=== PATIENT | female | born 1980 | race Caucasian/White ===

== ENCOUNTER 2017-01-31 19:04 | Emergency (ER) | payer MEDICAID ==
--- NOTE | 2017-01-31 19:32 | EDPHY ---
H & P Time Seen by Provider: 01/31/17 19:20 HPI/ROS: Chief complaint. Migraine HPI. 36-year-old female with history of headaches had which she describes as a migraine last night and then today she had visual symptoms which she describes as flashing lights in her eyes and she developed facial numbness to the left face mouth left side of her nose and then to the fingers of her left hand. They were numb. This lasted 10-15 minutes and then developed headache. No nausea or vomiting. She thinks possibly she also had weakness to the left hand. She notes increased stress. No recent upper respiratory symptoms or fever. She still has some numbness but it seems to be resolving. ROS Constitutional. no fever/chills, no weakness Eyes. Visual scotoma at onset ENT. no sore throat, no nasal drainage Cardiovascular. no chest pain Respiratory. no shortness of breath, no cough Abdominal. no abdominal pain, no nausea/vomiting, no diarrhea . no problems urinating MS. no calf pain/swelling, no neck/back pain, no joint pain Skin. no rash Lymph. no swollen glands Neuro. Headache and left facial numbness Past Medical/Surgical History: Kidney infection, migraines Social History: Single, nonsmoker, no alcohol Smoking Status: Never smoked Physical Exam: General Appearance: Alert well-developed female mild distress vital signs are stable Eyes: Pupils equal and round no pallor or injection. ENT, Mouth: Mucous membranes are moist. Respiratory: There are no retractions, lungs are clear to auscultation. Cardiovascular: Regular rate and rhythm. Gastrointestinal: Abdomen is soft and nontender, no masses, bowel sounds normal. Neurological: Awake and alert, sensory and motor exams grossly normal. Speech is normal. Cranial nerves are normal. There is difference in sensation between right and left side of her face. There is no pronator drift. Hrrhes-mw-vovh is slightly ataxic with left index finger. Rjem-tj-jgma is normal Skin: Warm and dry, no rashes. Musculoskeletal: Neck is supple nontender. Extremities symmetrical, full range of motion. Psychiatric: Patient is oriented X 3, there is no agitation. Constitutional: Initial Vital Signs Temperature (C) 36.9 C 01/31/17 19:05 Heart Rate 69 01/31/17 19:05 Respiratory Rate 18 01/31/17 19:05 Blood Pressure 134/91 H 01/31/17 19:05 O2 Sat (%) 98 01/31/17 19:05 O2 Delivery Mode Room Air Allergies/Adverse Reactions: No Known Allergies Allergy (Verified 01/31/17 19:08) Home Medications: Medication Instructions Recorded NK [No Known Home Meds] 06/02/16 Medical Decision Making - Diagnostics Imaging Results: Imaging Impressions Brain MRI 01/31/17 20:07 Impression: 1. Left maxillary sinusitis. 2. Otherwise normal MRI brain without contrast. Findings and recommendations discussed with Emergency Department physician, SYD JACOB at 20:48 hour, 01/31/2017. Final report concurs with initial preliminary interpretation. MRI reviewed with Dr. Govea is nonacute Procedures: IV normal saline. Patient does not require any medication ED Course/Re-evaluation: I consulted and discussed case with the neurologist prison guard supervisor who recommends MRI Re-evaluation 9:00 p.m.. Patient is stable. Her symptoms have resolved. She and I discussed imaging and lab results. We discussed treatment plan including criteria for return importance of follow-up and further evaluation. She expresses understanding and agreement Differential Diagnosis: I considered migraine, CVA, TIA, intracranial bleeding - Data Points Laboratory Results: Laboratory Results 01/31/17 20:55 01/31/17 01/31/17 01/31/17 20:55 20:55 20:55 WBC 11.03 10^3/uL H 10^3/uL (3.80-9.50) RBC 4.97 10^6/uL 10^6/uL (4.18-5.33) Hgb 15.5 g/dL g/dL (12.6-16.3) Hct 44.9 % % (38.0-47.0) MCV 90.3 fL fL (81.5-99.8) MCH 31.2 pg pg (27.9-34.1) MCHC 34.5 g/dL g/dL (32.4-36.7) RDW 12.0 % % (11.5-15.2) Plt Count 285 10^3/uL 10^3/uL (150-400) MPV 10.3 fL fL (8.7-11.7) Neut % (Auto) 63.0 % % (39.3-74.2) Lymph % (Auto) 29.5 % % (15.0-45.0) [place] % (Auto) 6.2 % % (4.5-13.0) Eos % (Auto) 0.0 % L % (0.6-7.6) Baso % (Auto) 1.0 % % (0.3-1.7) Nucleat RBC Rel Count 0.0 % % (0.0-0.2) Absolute Neuts (auto) 6.96 10^3/uL H 10^3/uL (1.70-6.50) Absolute Lymphs (auto) 3.25 10^3/uL H 10^3/uL (1.00-3.00) Absolute Monos (auto) 0.68 10^3/uL 10^3/uL (0.30-0.80) Absolute Eos (auto) 0.00 10^3/uL L 10^3/uL (0.03-0.40) Absolute Basos (auto) 0.11 10^3/uL H 10^3/uL (0.02-0.10) Absolute Nucleated RBC 0.00 10^3/uL 10^3/uL (0-0.01) Immature Gran % 0.3 % % (0.0-1.1) Immature Gran # 0.03 10^3/uL 10^3/uL (0.00-0.10) Sodium Pending Potassium Pending Chloride Pending Carbon Dioxide Pending Anion Gap Pending BUN Pending Creatinine Pending Estimated GFR Pending Glucose Pending Calcium Pending Beta HCG, Qual Pending Medications Given: Discontinued Medications Sodium Chloride (Ns) 1,000 mls @ 0 mls/hr IV ONCE ONE PRN Reason: Wide Open Stop: 01/31/17 20:07 Last Admin: 01/31/17 20:56 Dose: 1,000 mls Departure - Departure Disposition: Home, Routine, Self-Care Clinical Impression: Migraine aura, persistent Qualifiers: Status migrainosus presence: without status migrainosus Intractability: not intractable Qualified Code(s): G43.509 - Persistent migraine aura without cerebral infarction, not intractable, without status migrainosus Condition: Good Instructions: Migraine Headache (ED) Additional Instructions: May use Tylenol or Advil as needed for headache. Return for worsening symptoms. I will give you the name of Neurology for follow-up and further evaluation and treatment Referrals: ,UNKNOWN [Other] - As per Instructions Steven Flores DO [Doctor of Osteopathy] - 5-7 days, call for appt.
[2017-01-31] MEDS ORDERED: NS 1,000 ML IV ONE (20:06)
[2017-01-31 21:08] LABS: % IMMATURE GRANULYOCYTES 0.3 % (0.0-1.1); ABSOLUTE IMMATURE GRANULOCYTES 0.03 10^3/uL (0.00-0.10); ADD DIFF? NO; ADD MORPH? NO; ADD SCAN? NO; ATYPICAL LYMPHOCYTE FLAG 10 (0-99); FRAGMENT RBC FLAG 0 (0-99); HEMATOCRIT 44.9 % (38.0-47.0); HEMOGLOBIN 15.5 g/dL (12.6-16.3); LEFT SHIFT FLG 0 (0-99); LIPEMIA HEMOLYSIS FLAG 90 (0-99); MEAN CELL HEMOGLOBIN 31.2 pg (27.9-34.1); MEAN CELL HEMOGLOBIN CONCENTR. 34.5 g/dL (32.4-36.7); MEAN CELL VOLUME 90.3 fL (81.5-99.8); MEAN PLATELET VOLUME 10.3 fL (8.7-11.7); PLATELET CLUMPS FLAG 10 (0-99); PLATELET COUNT 285 10^3/uL (150-400); RED BLOOD CELL COUNT 4.97 10^6/uL (4.18-5.33)
[2017-01-31 21:15] LABS: ANION GAP 10 mEq/L (8-16); CALCIUM 9.8 mg/dL (8.5-10.4); CARBON DIOXIDE 23 mEq/l (22-31); CHLORIDE 106 mEq/L (97-110); CREATININE 0.7 mg/dL (0.6-1.0); GLOMERULAR FILTRATION RATE > 60; GLUCOSE 97 mg/dL (70-100); POTASSIUM 4.3 mEq/L (3.5-5.2); SODIUM 139 mEq/L (134-144)
[2017-01-31 21:36] VITALS: BP 109/68; PULSE 59; RESP 16; TEMP 98.8; O2SAT 96
== END 2017-01-31 21:36 | disposition home or self-care (01) ==
DX: G43.509 Persistent migraine aura without cerebral infarction, not intractable, without status migrainosus (principal)

== ENCOUNTER 2018-02-06 08:25 | Emergency (ER) | payer MEDICAID ==
--- NOTE | 2018-02-06 08:59 | EDPHY ---
H & P Stated Complaint: Intermittent vertigo on waking this week;resolves; has URI sx/ runny nose Time Seen by Provider: 02/06/18 08:58 HPI/ROS: HPI: This is a 37-year-old female who presents with Chief Complaint: Intermittent vertigo on waking this week;resolves; has URI sx/ runny nose Location: Head Quality: Spinning sensation Duration: 5 days Signs and Symptoms: no fever, no nausea, no vomiting, + photophobia, no noise sensitivity, no neck stiffness, no ear pain, no tinnitus, + nasal congestion, no sinus pressure, no weakness, no radiation, no aura, + itchy watery eye, + sneezing Timing: Worse in the mornings Severity: Moderate Context: Patient presents with complaints of intermittent vertigo with a sensation of the room spinning when she turns her head to the right or to the left when she wakes up in the morning since Thursday. She reports that she travel to [facility] on Thursday. Thursday she woke up in her bed in turned to get out of the bed when she felt like the room was spinning. She denies feeling lightheaded/fever/ear pain/neck stiffness. She does report that she has some itchy watery eyes, sneezing, nasal congestion. She has a history of migraine headaches as well accompanied by photophobia especially today. She was seen at the [facility] emergency room 2 days ago and diagnosed with vertigo. She was given treatment plan for Ajay maneuvers which she reports has mild relief. Currently on menses. She reports that she was able to drive herself to the emergency room today. Modifying Factors: See above Comment: ROS: see HPI Constitutional: No fever, no chills, no weight loss Eyes: No blurred vision Respiratory: No shortness of breath, no cough Cardiovascular: No chest pain, no palpitations Gastrointestinal: No nausea, no vomiting, no diarrhea, no hematemesis, no blood in stool Genitourinary: No dysuria, no blood in urine Extremities: No myalgias, no edema Neurologic: No weakness, no numbness Skin: No rashes, no petechiae Hematologic: No bruising, no bleeding MEDICAL/SURGICAL/SOCIAL HISTORY: Medical history: Migraine headache. Does not take any regular medications. Surgical history: Denies Social history: Family history noncontributory. CONSTITUTIONAL: Extremely well-appearing nontoxic middle-aged white female, awake and alert, no obvious distress HEENT: Atraumatic and normocephalic, PERRL, EOMI. Nares patent; no rhinorrhea; no nasal mucosal edema. Tympanic membranes clear. Oropharynx clear, no exudate and moist pink mucosa. Airway patent. No lymphadenopathy. No meningismus. Cardiovascular: Normal S1/S2, regular rate, regular rhythm, without murmur rub or gallop. PULMONARY/CHEST: Symmetrical and nontender. Clear to auscultation bilaterally. Good air movement. No accessory muscle usage. ABDOMEN: Soft, nondistended, nontender, no rebound, no guarding, no peritoneal signs, no masses or organomegaly. No CVAT. EXTREMITIES: 2/2 pulses, strength 5/5, no deformities, no clubbing, no cyanosis or edema. NEUROLOGICAL: no focal neuro deficits. GCS 15. Cranial nerves 2-12 grossly intact. SKIN: Warm and dry, no erythema. no rash. Good capillary refill. Source: Patient Exam Limitations: No limitations - Personal History LMP (Females 10-55): Now Current Tetanus Diphtheria and Acellular Pertussis (TDAP): Yes - Medical/Surgical History Hx Asthma: No Hx Chronic Respiratory Disease: No Hx Diabetes: No Hx Cardiac Disease: No Hx Renal Disease: No Hx Cirrhosis: No Hx Alcoholism: No Hx HIV/AIDS: No Hx Splenectomy or Spleen Trauma: No Other PMH: MIGRAINES - Social History Smoking Status: Former smoker Constitutional: Initial Vital Signs Temperature (C) 36.7 C 02/06/18 08:26 Heart Rate 68 02/06/18 08:26 Respiratory Rate 18 02/06/18 08:26 Blood Pressure 99/68 L 02/06/18 08:26 O2 Sat (%) 98 02/06/18 08:26 O2 Delivery Mode Room Air Allergies/Adverse Reactions: No Known Allergies Allergy (Verified 02/06/18 08:26) Home Medications: Medication Instructions Recorded Fluticasone Furoate [Flonase 1 spray NS DAILY #1 spray.susp 02/06/18 Sensimist] Levocetirizine Dihydrochloride 5 mg PO DAILY #20 tablet 02/06/18 [Xyzal] Meclizine HCl [Meclizine HCl 25 mg 25 mg PO Q6 PRN #12 tab 02/06/18 (RX,OTC)] Medical Decision Making ED Course/Re-evaluation: I believe that patient has a combination of migraine is headache with vertigo secondary to allergic rhinosinusitis; barometric pressure changes Patient will be given 1 L normal saline, IV Decadron, IV Reglan, IV Benadryl I do not believe that antibiotics are indicated as no signs of bacterial sinusitis No neurological deficits to warrant imaging of the brain. Reassessed patient who reports improvement in her symptoms. Advised dixu-fnu-orrhstz antihistamines nasal spray, decongestant. Prescription for meclizine given. This patient was seen under the supervision of my secondary supervising physician. I evaluated care for this patient independently. Differential Diagnosis: Headache including but not limited to subarachnoid hemorrhage, migraine headache , tension headache and infectious causes such as meningitis, pharyngitis and sinusitis. - Data Points Medications Given: Discontinued Medications Dexamethasone (Decadron Injection) 10 mg IVP EDNOW ONE Stop: 02/06/18 09:10 Last Admin: 02/06/18 09:29 Dose: 10 mg Diphenhydramine HCl (Benadryl Injection) 25 mg IVP EDNOW ONE Stop: 02/06/18 09:10 Last Admin: 02/06/18 09:29 Dose: 25 mg Sodium Chloride (Ns) 1,000 mls @ 0 mls/hr IV ONCE ONE; Wide Open PRN Reason: Protocol Stop: 02/06/18 09:10 Last Admin: 02/06/18 09:24 Dose: 1,000 mls Ketorolac Tromethamine (Toradol) 30 mg IVP EDNOW ONE Stop: 02/06/18 09:10 Last Admin: 02/06/18 09:29 Dose: 30 mg Metoclopramide HCl (Reglan Injection) 10 mg IVP EDNOW ONE Stop: 02/06/18 09:10 Last Admin: 02/06/18 09:29 Dose: 10 mg Departure - Departure Disposition: Home, Routine, Self-Care Clinical Impression: History of migraine headaches Allergic rhinosinusitis Qualifiers: Allergic rhinitis trigger: unspecified Allergic rhinitis seasonality: seasonal Qualified Code(s): J30.2 - Other seasonal allergic rhinitis Condition: Good Instructions: Migraine Headache (ED), Vertigo (ED), Allergies (ED) Additional Instructions: Take iowo-yoz-nhqhifz antihistamines like (Claritin, Zyrtec, Rosa Maria, Xyzal) daily for allergic rhinosinusitis. Use yjng-tmv-twguoyk Flonase 1 spray each nostril daily. Take Sudafed aeof-nlg-bohvcah every 6 hr as needed for nasal congestion. Take Meclizine every 6 hr as needed for vertigo. Consume a minimum of 8-10 glasses of water or electrolyte fluid replacement drinks that include Gatorade, Powerade, Pedialyte. Return to the ER immediately if you have progressive headaches, neurologic deficits, gait abnormality, visual disturbance, slurred speech, or any other symptom that concerns you. Referrals: Florecita Cardenas, DO [Primary Care Provider] - 3-4 days, if not improved Prescriptions: Fluticasone Furoate [Flonase Sensimist] 1 spray NS DAILY #1 spray.susp Levocetirizine Dihydrochloride [Xyzal] 5 mg PO DAILY #20 tablet Meclizine HCl [Meclizine HCl 25 mg (RX,OTC)] 25 mg PO Q6 PRN #12 tab PRN Reason: Dizziness
[2018-02-06] MEDS ORDERED: NS 1,000 ML IV ONE (09:09)
[2018-02-06] MEDS ORDERED: METOCLOPRAMIDE 10 MG/2 ML VIAL IVP ONE (09:09)
[2018-02-06] MEDS ORDERED: DEXAMETHASONE 10 MG/ML VIAL IVP ONE (09:09)
[2018-02-06] MEDS ORDERED: KETOROLAC 30 MG/1 ML SDV IVP ONE (09:09)
[2018-02-06 10:34] VITALS: BP 108/67
== END 2018-02-06 10:32 | disposition home or self-care (01) ==
DX: J30.2 Other seasonal allergic rhinitis (principal); E86.9 Volume depletion, unspecified; Z86.69 Personal history of other diseases of the nervous system and sense organs; Z87.891 Personal history of nicotine dependence
CPT/HCPCS: 96374; J1100; J1200; J1885; J2765

== ENCOUNTER 2018-03-07 12:14 | Emergency (ER) | payer MEDICAID ==
--- NOTE | 2018-03-07 12:31 | CPEKG ---
Heart Rate: 65 RR Interval: 923 P-R Interval: 140 QRSD Interval: 80 QT Interval: 388 QTC Interval: 404 P Jefferson: 56 QRS Jefferson: 76 T Wave Jefferson: 73 EKG Severity - NORMAL ECG - EKG Impression: SINUS RHYTHM Electronically Signed By: Valencia Cardoso 07-Mar-2018 14:47:06
[2018-03-07 12:56] LABS: PLATELET COUNT 258 10^3/uL (150-400)
--- NOTE | 2018-03-07 13:54 | EDPHY ---
H & P Stated Complaint: presyncopal episode (palp, ldizzy) 10:45am today at work, better now Time Seen by Provider: 03/07/18 12:34 HPI/ROS: CHIEF COMPLAINT: Palpitations HISTORY OF PRESENT ILLNESS: 37-year-old female while presents with palpitations. She was at work this morning when she felt a fluttering in her chest. The fluttering lasted a few seconds. She felt the need to take a deep breath and then began to feel dizzy. The dizziness was transient and she did not fall or faint. She has had multiple prior fluttering sensations in her chest, but never associated with dizziness. No chest pain. REVIEW OF SYSTEMS: complete 10 point ROS negative except at noted in the HPI - Personal History LMP (Females 10-55): 1-7 Days Ago Current Tetanus/Diphtheria Vaccine: No Current Tetanus Diphtheria and Acellular Pertussis (TDAP): No - Medical/Surgical History Hx Asthma: No Hx Chronic Respiratory Disease: No Hx Diabetes: No Hx Cardiac Disease: No Hx Renal Disease: No Hx Cirrhosis: No Hx Alcoholism: No Hx HIV/AIDS: No Hx Splenectomy or Spleen Trauma: No Other PMH: MIGRAINES. depression - Social History Smoking Status: Former smoker Alcohol Use: Sober Drug Use: None - Physical Exam Exam: General Appearance: Alert, pleasant Eyes: Pupils equal and round, no conjunctival pallor or injection ENT, Mouth: Mucous membranes moist Neck: Normal inspection Respiratory: Lungs are clear to auscultation Cardiovascular: Regular rate and rhythm, no murmur Gastrointestinal: Abdomen is soft and nontender Neurological: A&O, nonfocal, normal gait Skin: Warm and dry, no rash Extremities: Nontender, no pedal edema Psychiatric: Mood and affect normal Constitutional: Initial Vital Signs Temperature (C) 37.0 C 03/07/18 12:18 Heart Rate 67 03/07/18 12:18 Respiratory Rate 16 03/07/18 12:18 Blood Pressure 105/59 L 03/07/18 12:18 O2 Sat (%) 97 03/07/18 12:18 O2 Delivery Mode Room Air Allergies/Adverse Reactions: No Known Allergies Allergy (Verified 02/06/18 08:26) Home Medications: Medication Instructions Recorded NK [No Known Home Meds] 03/07/18 Medical Decision Making - Diagnostics EKG Interpretation: EKG interpreted by me reveals normal sinus rhythm, rate 65, no ST or T segment changes. Interpretation: Normal EKG Imaging Results: Imaging Impressions Chest X-Ray 03/07/18 12:33 Impression: No acute pulmonary disease. Imaging: I viewed and interpreted images myself ED Course/Re-evaluation: This patient presents with symptomatic palpitations. Stat EKG reveals no evidence of ischemia or dysrhythmia. Laboratory studies are unremarkable, including TSH. surveillance monitor revealed normal sinus rhythm throughout. Encouraged patient to follow up with PCP. Consider outpatient cardiac monitoring. Differential Diagnosis: Differential diagnosis includes though it is not limited to SVT, ventricular dysrhythmia, PVC, pneumonia, pneumothorax, pulmonary embolism, aortic dissection , pericarditis, acute coronary syndrome. - Data Points Laboratory Results: Laboratory Results 03/07/18 12:40 03/07/18 12:40 03/07/18 03/07/18 03/07/18 12:53 12:40 12:40 WBC 7.49 10^3/uL 10^3/uL (3.80-9.50) RBC 4.74 10^6/uL 10^6/uL (4.18-5.33) Hgb 14.9 g/dL g/dL (12.6-16.3) Hct 43.4 % % (38.0-47.0) MCV 91.6 fL fL (81.5-99.8) MCH 31.4 pg pg (27.9-34.1) MCHC 34.3 g/dL g/dL (32.4-36.7) RDW 11.9 % % (11.5-15.2) Plt Count 258 10^3/uL 10^3/uL (150-400) MPV 10.0 fL fL (8.7-11.7) Neut % (Auto) 67.0 % % (39.3-74.2) Lymph % (Auto) 24.7 % % (15.0-45.0) Ray % (Auto) 7.1 % % (4.5-13.0) Eos % (Auto) 0.0 % L % (0.6-7.6) Baso % (Auto) 1.1 % % (0.3-1.7) Nucleat RBC Rel Count 0.0 % % (0.0-0.2) Absolute Neuts (auto) 5.02 10^3/uL 10^3/uL (1.70-6.50) Absolute Lymphs (auto) 1.85 10^3/uL 10^3/uL (1.00-3.00) Absolute Monos (auto) 0.53 10^3/uL 10^3/uL (0.30-0.80) Absolute Eos (auto) 0.00 10^3/uL L 10^3/uL (0.03-0.40) Absolute Basos (auto) 0.08 10^3/uL 10^3/uL (0.02-0.10) Absolute Nucleated RBC 0.00 10^3/uL 10^3/uL (0-0.01) Immature Gran % 0.1 % % (0.0-1.1) Immature Gran # 0.01 10^3/uL 10^3/uL (0.00-0.10) Sodium 141 mEq/L mEq/L (135-145) Potassium 4.4 mEq/L mEq/L (3.3-5.0) Chloride 107 mEq/L mEq/L (97-110) Carbon Dioxide 23 mEq/l mEq/l (22-31) Anion Gap 11 mEq/L mEq/L (8-16) BUN 12 mg/dL mg/dL (7-23) Creatinine 0.7 mg/dL mg/dL (0.6-1.0) Estimated GFR > 60 Glucose 87 mg/dL mg/dL (70-100) Calcium 8.9 mg/dL mg/dL (8.5-10.4) POC Troponin I 0.00 ng/mL ng/mL (0.00-0.08) TSH 1.980 uIU/mL uIU/mL (0.465-4.680) Point of Care Test Results: Chemistry 03/07/18 12:53 POC Troponin I 0.00 ng/mL ng/mL (0.00-0.08) Departure - Departure Disposition: Home, Routine, Self-Care Clinical Impression: Palpitations Condition: Good Instructions: Heart Palpitations (ED) Additional Instructions: Return for worsening symptoms or any concerns. Referrals: Florecita Cardenas, DO [Primary Care Provider] - 2-3 days without fail
[2018-03-07 14:09] VITALS: BP 108/69
== END 2018-03-07 14:09 | disposition home or self-care (01) ==
DX: R00.2 Palpitations (principal); Z87.891 Personal history of nicotine dependence
CPT/HCPCS: 84484-PO